=== PATIENT | female | born 1970 | race Caucasian/White ===

== ENCOUNTER 2019-01-30 02:42 | Inpatient (IN) | payer MEDICAID ==
[~2019-01-30] VITALS: Ht 160 cm; Wt 58.8 kg
[~2019-01-30 02:42] MED LIST: AMOX500C2 PO; HYDR-3601 PO; TAMS-14 PO
[2019-01-30] MEDS ORDERED: KETOROLAC 15 MG INJ IV STA (03:02)
[2019-01-30] MEDS ORDERED: ONDANSETRON 4 MG INJ IV STA (03:14)
[2019-01-30] MEDS ORDERED: morphine 2 MG INJ IV STA (03:14)
[2019-01-30] MEDS ORDERED: CEFTRIAXONE 1 GM/50 ML (PMX) 50 ML IVPB ONE ×4 (05:30→17:30)
[2019-01-30] MEDS ORDERED: HYDROmorphONE 0.5 MG/0.5 ML SYG IV STA (05:30)
[2019-01-30] MEDS ORDERED: SOD CHLORIDE 0.9% 1,000 ML IV ONE (05:30)
[2019-01-30] MEDS ORDERED: SOD CHLORIDE 0.9% 500 ML IV ONE (06:00)
[2019-01-30] MEDS ORDERED: TAMSULOSIN (SR) 0.4 MG CAP PO ONE (06:00)
[2019-01-30] MEDS ORDERED: NACL 0.9% 3 ML SYG IV SCH (06:00)
[2019-01-30] MEDS ORDERED: ONDANSETRON 4 MG INJ IV PRN (06:00)
[2019-01-30] MEDS ORDERED: HYDROCODONE/APAP (5/325) TAB PO PRN (06:00)
[2019-01-30 08:00] VITALS: BP 123/63; PULSE 92; RESP 18
[2019-01-30] MEDS: ACETAMINOPHEN 325 MG TAB PO PRN ×2 (08:23→14:55)
[2019-01-30] MEDS: HYDROCODONE/APAP (5/325) TAB PO PRN ×3 (08:25→23:02)
[2019-01-30] MEDS: SOD CHLORIDE 0.9% 1,000 ML IV SCH ×4 (08:25→21:44)
[2019-01-30 09:55] VITALS: Ht 160 cm; Wt 58.8 kg
[2019-01-30 14:00] VITALS: BP 128/62; PULSE 84; RESP 20
[2019-01-30 20:20] VITALS: BP 104/65; PULSE 66; RESP 18
[2019-01-31] MEDS: SOD CHLORIDE 0.9% 1,000 ML IV SCH ×3 (00:55→17:28)
[2019-01-31 02:25] VITALS: BP 105/60; PULSE 66; RESP 18
[2019-01-31] MEDS ORDERED: POLYETHYLENE GLYCOL 17 GM PACKET PO PRN (05:00)
[2019-01-31] MEDS ORDERED: AL HYDROX/MG HYDROX/SIMETH 30 ML CUP PO PRN (05:00)
[2019-01-31] MEDS: PANTOPRAZOLE (EC) 40 MG TAB PO SCH (05:07)
[2019-01-31] MEDS: HYDROCODONE/APAP (5/325) TAB PO PRN ×4 (05:07→23:18)
[2019-01-31 08:19] VITALS: BP 117/65; PULSE 84; RESP 18
[2019-01-31] MEDS: DOCUSATE SODIUM 100 MG CAP PO SCH ×2 (08:45→20:24)
[2019-01-31] MEDS: POLYETHYLENE GLYCOL 17 GM PACKET GTB SCH (10:25)
[2019-01-31 14:00] VITALS: BP 129/68; PULSE 70; RESP 18
[2019-01-31] MEDS: CEFTRIAXONE 1 GM/50 ML (PMX) 50 ML IVPB SCH (14:29)
[2019-01-31] MEDS: ACETAMINOPHEN 325 MG TAB PO PRN (16:03)
[2019-01-31 20:20] VITALS: BP 113/67; PULSE 73; RESP 18
[2019-02-01] MEDS: SOD CHLORIDE 0.9% 1,000 ML IV SCH ×2 (01:37→10:32)
[2019-02-01 02:20] VITALS: BP 130/69; PULSE 78; RESP 18
[2019-02-01] MEDS: PANTOPRAZOLE (EC) 40 MG TAB PO SCH (05:19)
[2019-02-01] MEDS: HYDROCODONE/APAP (5/325) TAB PO PRN (05:19)
[2019-02-01 08:26] VITALS: BP 101/58; PULSE 66; RESP 18
[2019-02-01] MEDS: DOCUSATE SODIUM 100 MG CAP PO SCH (08:49)
[2019-02-01] MEDS: POLYETHYLENE GLYCOL 17 GM PACKET GTB SCH (08:49)
[2019-02-01] MEDS: ACETAMINOPHEN 325 MG TAB PO PRN (12:30)
[2019-02-01 14:00] VITALS: BP 119/72; PULSE 77; RESP 19
[2019-02-01] MEDS: CEFTRIAXONE 1 GM/50 ML (PMX) 50 ML IVPB SCH (14:33)
[2019-02-01] MEDS ORDERED: TAMSULOSIN (SR) 0.4 MG CAP PO SCH (21:00)
== END 2019-02-01 16:54 | disposition home or self-care (01) | DRG 690 ==
LOC: E/R 02:42 → PP2 05:33
PROVIDERS: ADMIT Internal Medicine; ATTEND Internal Medicine
DX: N13.6 Pyonephrosis (principal); B96.20 Unspecified Escherichia coli [E. coli] as the cause of diseases classified elsewhere; K59.00 Constipation, unspecified; N10 Acute pyelonephritis; F41.9 Anxiety disorder, unspecified; E86.0 Dehydration; F12.90 Cannabis use, unspecified, uncomplicated
CPT/HCPCS: 36415; 74018; 74176; 80053; 80307; 81003; 83690; 83735; 84100; 84702; 85025; 87086; 96374; 96375; J0696; J1170; J1885; J2270; J2405; J7030; J7040